=== PATIENT | male | born 2005 | race Two or more races ===

== ENCOUNTER 2024-04-22 11:31 | Emergency (ER) | payer MEDICAID, OTHER ==
[~2024-04-22] VITALS: Ht 177.8 cm; Wt 87.1 kg
[2024-04-22 12:31] VITALS: BP 133/92; PULSE 113; RESP 22; TEMP 98.3; O2SAT 99
[2024-04-22] MEDS: IBUPROFEN 800 MG TAB PO ONE (12:48)
[2024-04-22] MEDS ORDERED: IBUP-1456 PO (13:42)
== END 2024-04-22 13:56 | disposition home or self-care (01) ==
LOC: ER 11:31
DX: S16.1XXA Strain of muscle, fascia and tendon at neck level, initial encounter (principal); V49.9XXA Car occupant (driver) (passenger) injured in unspecified traffic accident, initial encounter; Y93.89 Activity, other specified; Y92.89 Other specified places as the place of occurrence of the external cause; Y99.8 Other external cause status
CPT/HCPCS: 72040